=== PATIENT | male | born 1955 | race Two or more races ===

== ENCOUNTER 2023-10-18 12:08 | Inpatient (IN) | payer MEDICARE, OTHER ==
[~2023-10-18] VITALS: Ht 167.6 cm; Wt 83.7 kg
[2023-10-18 13:30] LABS: Basophils # (auto) 0.1 10 ^3/uL (0-0.2); Eosinophils # (auto) 0.4 10 ^3/uL (0-0.8); Eosinophils % (auto) 4.5 % (0.0-7.0); Hematocrit 46.9 % (41.0-53.0); Hemoglobin 15.9 g/dL (13.5-17.5); Lymphocytes % (auto) 25.2 % (10.0-50.0); Mean Corpuscular Hemoglobin 29.4 pg (28.0-32.0); Mean Corpuscular Hgb Conc. 33.8 g/dL (32.0-36.0); Mean Corpuscular Volume 86.9 fL (80.0-100.0); Monocytes # (auto) 0.5 10 ^3/uL (0-1.3); Monocytes % (auto) 6.8 % (0.0-12.0); Neutrophils # (auto) 4.9 10 ^3/uL (1.6-8.6); Neutrophils % (auto) 62.5 % (37.0-80.0); Nucleated Red Blood Cells % 0.1 %; Platelet Count (auto) 144 10^3/uL (140-450); Red Cell Distribution Width 13.6 % (11.8-14.3); White Blood Cell 7.9 10^3/uL (4.4-10.8)
[2023-10-18 13:49] LABS: Alanine Aminotransferase 64 U/L (7-40); Alkaline Phosphatase 136 U/L (46-116); Anion Gap 9 (5-15); Aspartate Aminotransferase 37 U/L (13-40); BUN/Creatinine Ratio 11.4 (10.0-20.0); Blood Urea Nitrogen 21 mg/dL (9-23); Calcium 9.3 mg/dL (8.7-10.4); Carbon Dioxide 20 mmol/L (20-30); Chloride 96 mmol/L (98-107); Magnesium 2.4 mg/dL (1.6-2.6); Potassium 4.8 mmol/L (3.5-5.1); Sodium 125 mmol/L (136-145)
[2023-10-18 13:50] LABS: Bilirubin, Total 0.6 mg/dL (0.2-1.0); Total Protein 7.1 g/dL (5.7-8.2)
[2023-10-18 13:53] LABS: Glucose 683 mg/dL (74-106)
[2023-10-18] MEDS: SODIUM CHLORIDE 0.9% 1,000 ML IV ONE (14:50)
[2023-10-18] MEDS: InsuLIN REG 1unit/0.01ml Soln (100units/ml) IV ONE (14:50)
[2023-10-18] MEDS: SODIUM CHLORIDE 0.9% 1,000 ML IV SCH (19:00)
[2023-10-18] MEDS ORDERED: DEXTROSE (50%) 50ML SYRG IV PRN (19:00)
[2023-10-18] MEDS ORDERED: ONDANSETRON HCL 4 MG/2 ML VIAL IV PRN (19:00)
[2023-10-18] MEDS ORDERED: NITROGLYCERIN 0.4 MG SL TAB SL PRN (19:00)
[2023-10-18] MEDS ORDERED: DOCUSATE SOD 100 MG CAP PO PRN (19:00)
[2023-10-18] MEDS ORDERED: MORPHINE SULFATE INJ 2 MG/ml SYRG IV PRN ×2 (19:00→20:15)
[2023-10-18] MEDS: ACCU-CHEK COMFORT CURVE STRIP VI SCH (20:00)
[2023-10-18 20:30] VITALS: PULSE 73; RESP 17; O2SAT 95
[2023-10-18] MEDS: InsuLIN REG 1unit/0.01ml Soln (100units/ml) SC SCH (20:57)
[2023-10-19 05:01] LABS: Basophils # (auto) 0.1 10 ^3/uL (0-0.2); Eosinophils # (auto) 0.7 10 ^3/uL (0-0.8); Eosinophils % (auto) 10.2 % (0.0-7.0); Hematocrit 43.9 % (41.0-53.0); Hemoglobin 14.9 g/dL (13.5-17.5); Lymphocytes # (auto) 2.1 10 ^3/uL (0.4-5.4); Lymphocytes % (auto) 28.7 % (10.0-50.0); Mean Corpuscular Hemoglobin 28.9 pg (28.0-32.0); Mean Corpuscular Volume 85.1 fL (80.0-100.0); Monocytes # (auto) 0.5 10 ^3/uL (0-1.3); Monocytes % (auto) 7.3 % (0.0-12.0); Neutrophils # (auto) 3.9 10 ^3/uL (1.6-8.6); Neutrophils % (auto) 52.8 % (37.0-80.0); Nucleated Red Blood Cells % 0.1 %; Platelet Count (auto) 129 10^3/uL (140-450); Red Blood Cells 5.15 10^6/uL (4.5-5.90); Red Cell Distribution Width 13.7 % (11.8-14.3); White Blood Cell 7.3 10^3/uL (4.4-10.8)
[2023-10-19 05:19] LABS: Alanine Aminotransferase 114 U/L (7-40); Albumin 3.6 g/dL (3.2-4.8); Alkaline Phosphatase 119 U/L (46-116); Anion Gap 6 (5-15); Aspartate Aminotransferase 154 U/L (13-40); BUN/Creatinine Ratio 12.5 (10.0-20.0); Bilirubin, Total 0.4 mg/dL (0.2-1.0); Blood Urea Nitrogen 17 mg/dL (9-23); Calcium 9.2 mg/dL (8.7-10.4); Carbon Dioxide 23 mmol/L (20-30); Chloride 104 mmol/L (98-107); Potassium 4.1 mmol/L (3.5-5.1); Total Protein 6.4 g/dL (5.7-8.2)
[2023-10-19 05:28] LABS: Glucose 291 mg/dL (74-106); Sodium 133 mmol/L (136-145)
[2023-10-19 07:55] VITALS: PULSE 61; RESP 16; O2SAT 99
[2023-10-19 14:26] VITALS: BP 143/85; PULSE 64; RESP 16; TEMP 98.2; O2SAT 95
[2023-10-19] MEDS ORDERED: DEXTROSE (50%) 50ML SYRG IV PRN (14:30)
[2023-10-19] MEDS ORDERED: CLOP75TA70 PO (14:35)
[2023-10-19] MEDS ORDERED: SUCR1TAB PO (14:35)
[2023-10-19] MEDS ORDERED: EMPA1TAB PO (14:35)
[2023-10-19] MEDS ORDERED: FURO20TA4 PO (14:43)
[2023-10-19] MEDS ORDERED: METF-370 PO (14:43)
[2023-10-19] MEDS ORDERED: ALLO300T2 PO (14:43)
[2023-10-19] MEDS ORDERED: OMEP-337 (14:43)
[2023-10-19] MEDS ORDERED: INSUINJ37 SC (14:43)
[2023-10-19] MEDS ORDERED: INSU100I4 SC (14:43)
[2023-10-19] MEDS ORDERED: AMLO1TAB23 PO (14:43)
[2023-10-19] MEDS ORDERED: ENAL1TAB48 PO (14:43)
[2023-10-19 14:50] VITALS: PULSE 61; RESP 20; O2SAT 96
[2023-10-19] MEDS: SODIUM CHLORIDE 0.9% 1,000 ML IV SCH (15:39)
[2023-10-19 16:33] VITALS: BP 121/80; PULSE 66; RESP 16; TEMP 97.9; O2SAT 97
[2023-10-19] MEDS: ACCU-CHEK COMFORT CURVE STRIP VI SCH (17:15)
[2023-10-19] MEDS: metFORMIN HYDROCHLORIDE 500 MG TAB PO SCH (18:01)
[2023-10-19] MEDS: InsuLIN REG 1unit/0.01ml Soln (100units/ml) SC SCH (18:05)
[2023-10-19 20:00] VITALS: PULSE 65; O2SAT 96
[2023-10-19 21:00] VITALS: BP 138/64; PULSE 66; RESP 16; TEMP 98.4; O2SAT 96
[2023-10-20] VITALS (8 sets, daily range): BP systolic 126–156; BP diastolic 76–89; PULSE 53–64; RESP 16–20; TEMP 97.7–98.2; O2SAT 93–100
[2023-10-20 02:30] LABS: Urine Bacteria None Seen /hpf (None Seen)
[2023-10-20 02:48] LABS: Creatinine, Urine 48.23 mg/dL (30.0-125.0); Urine Blood Negative /uL (Negative); Urine Clarity Clear (Clear); Urine Color Light-Yellow (Yellow); Urine Protein, UAD Negative (Negative); Urine Specific Gravity 1.019 (1.001-1.035); Urine Urobilinogen Normal (Negative); Urine WBC <1 /hpf (0 - 3); Urine pH 5.5 (5.0-9.0)
[2023-10-20 07:49] LABS: Alanine Aminotransferase 119 U/L (7-40); Albumin 3.1 g/dL (3.2-4.8); Alkaline Phosphatase 108 U/L (46-116); Anion Gap 5 (5-15); Aspartate Aminotransferase 126 U/L (13-40); Blood Urea Nitrogen 18 mg/dL (9-23); Calcium 8.3 mg/dL (8.7-10.4); Carbon Dioxide 24 mmol/L (20-30); Chloride 107 mmol/L (98-107); LDL Cholesterol 102 mg/dL (< 100); Magnesium 1.7 mg/dL (1.6-2.6); Potassium 4.5 mmol/L (3.5-5.1); Sodium 136 mmol/L (136-145); Triglycerides 143 mg/dL (< 150)
[2023-10-20 07:50] LABS: Bilirubin, Total 0.5 mg/dL (0.2-1.0); Cholesterol 148 mg/dL (< 200); HDL Cholesterol 30 mg/dL (40-59); Total Protein 5.3 g/dL (5.7-8.2)
[2023-10-20 07:51] LABS: Glucose 150 mg/dL (74-106)
[2023-10-20] MEDS: EMPAGLIFLOZIN 10 MG TAB PO SCH (07:51)
[2023-10-20] MEDS: INSULIN LANTUS (GLARGINE) 1 /0.01ml (100units/ml) SC SCH (21:28)
[2023-10-21 05:00] VITALS: BP 137/79; PULSE 53; RESP 19; TEMP 97.7; O2SAT 98
[2023-10-21 08:00] VITALS: PULSE 48
[2023-10-21 09:00] VITALS: BP 140/86; PULSE 56; RESP 17; TEMP 97.9; O2SAT 100
[2023-10-21 10:43] LABS: Hepatitis B Surface Antigen Negative (Negative)
[2023-10-21] MEDS ORDERED: EMPA1TAB PO (10:54)
[2023-10-21] MEDS ORDERED: METF-370 PO (10:54)
[2023-10-21 11:05] LABS: Hepatitis B Core IgM Negative; Hepatitis C Antibody Negative (Negative)
[2023-10-21 13:31] VITALS: BP 150/80; PULSE 66; RESP 17; TEMP 97.8; O2SAT 96
[2023-10-21 16:31] LABS: Hepatitis A Ab IgM Negative
[2023-10-21 16:58] VITALS: BP 132/90; PULSE 60; RESP 17; TEMP 97.9; O2SAT 95
[2023-10-21 17:09] VITALS: BP 130/86; PULSE 60; RESP 18; TEMP 97.9; O2SAT 99
== END 2023-10-21 18:55 | disposition home or self-care (01) | DRG 637 ==
LOC: ER 12:08 → TELE 19:09 → TELE-CENTR 19:09
PROVIDERS: ADMIT Nurse Practitioner Family; ATTEND Internal Medicine
DX: E11.65 Type 2 diabetes mellitus with hyperglycemia (principal); N17.0 Acute kidney failure with tubular necrosis; N18.9 Chronic kidney disease, unspecified; E11.22 Type 2 diabetes mellitus with diabetic chronic kidney disease; Z91.199 Patient's noncompliance with other medical treatment and regimen due to unspecified reason; Z79.4 Long term (current) use of insulin; Z79.899 Other long term (current) drug therapy
CPT/HCPCS: 36415; 70450; 80053; 80061; 80074; 81001; 82570; 82962; 83036; 83605; 83735; 83930; 83935; 84300; 84443; 84484; 85025; 93306; 93886; G0378; J1815

== ENCOUNTER → 2024-01-04 | Outpatient (CLI) | payer MEDICARE ==
[~2024-01-04] MED LIST: ALLO300T2 PO; AMLO1TAB23 PO; CLOP75TA70 PO; EMPA1TAB PO; ENAL1TAB48 PO; FURO20TA4 PO; INSU100I4 SC; INSUINJ37 SC; METF-370 PO; OMEP-337; SUCR1TAB PO
[2024-01-04 12:28] LABS: Creatinine, Urine 63.15 mg/dL (30.0-125.0)
[2024-01-04 12:29] LABS: Prostate Specific Antigen 0.3 ng/mL (0.0-4.0)
[2024-01-04 12:30] LABS: Micro Albumin < 3.0 mg/L (<30.0)
[2024-01-04 12:31] LABS: Alanine Aminotransferase 47 U/L (7-40); Albumin 4.4 g/dL (3.2-4.8); Alkaline Phosphatase 90 U/L (46-116); Anion Gap 7 (5-15); Aspartate Aminotransferase 28 U/L (13-40); Bilirubin, Total 0.5 mg/dL (0.2-1.0); Blood Urea Nitrogen 19 mg/dL (9-23); Calcium 9.9 mg/dL (8.7-10.4); Carbon Dioxide 28 mmol/L (20-31); Chloride 107 mmol/L (98-107); Glucose 87 mg/dL (74-106); Potassium 4.4 mmol/L (3.5-5.1); Sodium 142 mmol/L (136-145); Total Protein 7.4 g/dL (5.7-8.2)
[2024-01-04 12:33] LABS: % Iron Saturation 24.8 % (20-55)
[2024-01-05 08:06] LABS: Rheumatoid Arthritis Factor <10.0 IU/mL (<14.0); Thyroid Peroxidase (TPO) Ab 12 IU/mL (0-34)
[2024-01-05 10:53] LABS: Complement C3 105 mg/dL (82-167)
[2024-01-05 12:07] LABS: Anti-Nuclear Antibody Direct Negative (Negative); Anti-dsDNA Antibody 1 IU/mL (0-9); Antiscleroderma-70 Antibody <0.2 AI (0.0-0.9); RNP Antibody <0.2 AI (0.0-0.9); Sjogren's Anti-SS-A Antibody <0.2 AI (0.0-0.9); Sjogren's Anti-SS-B Antibody <0.2 AI (0.0-0.9); Smith Antibody <0.2 AI (0.0-0.9)
== END | disposition home or self-care (01) ==
LOC: LAB 11:09
PROVIDERS: ATTEND Internal Medicine
DX: I10 Essential (primary) hypertension (principal); E11.9 Type 2 diabetes mellitus without complications; E78.5 Hyperlipidemia, unspecified; Z79.899 Other long term (current) drug therapy
CPT/HCPCS: 36415; 80053; 82043; 82570; 82728; 83036; 83540; 83550; 84153; 86160; 86225; 86235; 86376; 86431

== ENCOUNTER → 2024-01-26 | Outpatient (CLI) | payer MEDICARE | END | disposition home or self-care (01) | LOC: LAB 16:18 | PROVIDERS: ATTEND Internal Medicine | DX: I10 Essential (primary) hypertension (principal); E11.9 Type 2 diabetes mellitus without complications; E78.5 Hyperlipidemia, unspecified ==

== ENCOUNTER → 2024-03-20 | Outpatient (CLI) | payer MEDICARE ==
[2024-03-20 12:41] LABS: Alanine Aminotransferase 32 U/L (7-40); Albumin 4.3 g/dL (3.2-4.8); Alkaline Phosphatase 88 U/L (46-116); Anion Gap 9 (5-15); Aspartate Aminotransferase 20 U/L (13-40); Blood Urea Nitrogen 16 mg/dL (9-23); Calcium 9.4 mg/dL (8.7-10.4); Carbon Dioxide 25 mmol/L (20-31); Chloride 106 mmol/L (98-107); Glucose 94 mg/dL (74-106); Potassium 4.5 mmol/L (3.5-5.1); Sodium 140 mmol/L (136-145)
[2024-03-20 12:42] LABS: Bilirubin, Total 0.5 mg/dL (0.2-1.0); Total Protein 6.9 g/dL (5.7-8.2)
[2024-03-20 12:43] LABS: Creatinine, Urine 43.56 mg/dL (30.0-125.0)
[2024-03-20 12:48] LABS: Micro Albumin < 3.0 mg/L (<30.0)
== END | disposition home or self-care (01) ==
LOC: LAB 11:01
PROVIDERS: ATTEND Internal Medicine
DX: E11.9 Type 2 diabetes mellitus without complications (principal); E78.5 Hyperlipidemia, unspecified
CPT/HCPCS: 36415; 80053; 82043; 82570; 83036

== ENCOUNTER → 2024-03-27 | Outpatient (CLI) | payer MEDICARE | END | disposition home or self-care (01) | LOC: LAB 05:53 | PROVIDERS: ATTEND Internal Medicine | DX: E11.9 Type 2 diabetes mellitus without complications (principal); E78.5 Hyperlipidemia, unspecified | CPT/HCPCS: 82270 ==

== ENCOUNTER → 2024-04-04 | Outpatient (CLI) | payer MEDICARE ==
[2024-04-04 15:45] LABS: Triglycerides 132 mg/dL (< 150)
[2024-04-04 15:46] LABS: Cholesterol 200 mg/dL (< 200); HDL Cholesterol 56 mg/dL (40-59)
[2024-04-04 15:47] LABS: LDL Cholesterol 136 mg/dL (< 100)
== END | disposition home or self-care (01) ==
LOC: LAB 09:36
PROVIDERS: ATTEND Internal Medicine
DX: E11.9 Type 2 diabetes mellitus without complications (principal); E78.5 Hyperlipidemia, unspecified
CPT/HCPCS: 36415; 80061; 83036

== ENCOUNTER → 2024-07-04 | Outpatient (CLI) | payer MEDICARE ==
[2024-07-04 13:44] LABS: Albumin 4.4 g/dL (3.2-4.8); Bilirubin, Direct 0.1 mg/dL (<0.3); Bilirubin, Total 0.4 mg/dL (0.2-1.0); Total Protein 7.1 g/dL (5.7-8.2)
== END | disposition home or self-care (01) ==
LOC: LAB 13:00
PROVIDERS: ATTEND Internal Medicine
DX: E78.5 Hyperlipidemia, unspecified (principal)
CPT/HCPCS: 36415; 80076; 82550

== ENCOUNTER 2024-09-26 07:48 | Outpatient (CLI) | payer MEDICARE ==
[2024-09-26 08:35] LABS: Alanine Aminotransferase 20 U/L (7-40); Albumin 4.4 g/dL (3.2-4.8); Alkaline Phosphatase 84 U/L (46-116); Anion Gap 9 (5-15); BUN/Creatinine Ratio 10.5 (10.0-20.0); Blood Urea Nitrogen 13 mg/dL (9-23); Calcium 9.1 mg/dL (8.7-10.4); Carbon Dioxide 23 mmol/L (20-31); Chloride 107 mmol/L (98-107); Cholesterol 138 mg/dL (< 200); HDL Cholesterol 46 mg/dL (40-59); Potassium 4.3 mmol/L (3.5-5.1); Sodium 139 mmol/L (136-145); Total Protein 7.1 g/dL (5.7-8.2); Triglycerides 100 mg/dL (< 150)
[2024-09-26 08:36] LABS: Bilirubin, Total 0.5 mg/dL (0.2-1.0)
[2024-09-26 08:37] LABS: Glucose 159 mg/dL (74-106)
== END 2024-09-26 17:00 | disposition home or self-care (01) ==
LOC: LAB 07:48
PROVIDERS: ATTEND Internal Medicine
DX: E11.9 Type 2 diabetes mellitus without complications (principal); E78.5 Hyperlipidemia, unspecified
CPT/HCPCS: 36415; 80053; 80061; 83036

== ENCOUNTER 2024-12-27 07:21 | Outpatient (CLI) | payer MEDICARE ==
[2024-12-27 08:03] LABS: Urine Protein, UAD Negative (Negative)
[2024-12-27 08:28] LABS: Triglycerides 90 mg/dL (< 150)
[2024-12-27 08:30] LABS: Cholesterol 177 mg/dL (< 200); HDL Cholesterol 54 mg/dL (40-59)
== END 2024-12-27 17:00 | disposition home or self-care (01) ==
LOC: LAB 07:21
PROVIDERS: ATTEND Internal Medicine
DX: E11.9 Type 2 diabetes mellitus without complications (principal); E78.5 Hyperlipidemia, unspecified
CPT/HCPCS: 36415; 80061; 81001; 82043; 82570; 83036

== ENCOUNTER 2025-01-02 12:55 | Outpatient (CLI) | payer MEDICARE | END 2025-01-02 17:00 | disposition home or self-care (01) | LOC: LAB 12:55 | PROVIDERS: ATTEND Internal Medicine | DX: R60.0 Localized edema (principal); R03.1 Nonspecific low blood-pressure reading; I27.20 Pulmonary hypertension, unspecified; Z79.899 Other long term (current) drug therapy | CPT/HCPCS: 83880 ==

== ENCOUNTER 2025-01-10 09:03 | Outpatient (CLI) | payer MEDICARE ==
--- NOTE | 2025-01-10 18:32 | DVHSR ---
APPROVED REPORT EXAM: Two-dimensional and M-mode echocardiogram with Doppler and color Doppler. INDICATION Peripheral Edema DIMENSIONS LVDd (3.8-5.7cm) LA (2D) (1.9-4.0cm) Aortic Root 3.4 (2.0-3.7cm) LVDs (2.5-4.0cm) LA (MM) (1.9-4.0cm) Aortic Cusp Exc 1.6 (1.5-2.0cm) EF (%) 60.0 (55-70%) Rt. Atrium (1.9-4.0cm) Asc. Aorta cm Mitral Valve Mitral Mitral Stenosis E wave 0.71m/s MV Mean GR. mmHg A wave 0.83m/s MV Peak GR. mmHg E/A ratio 0.9 2D MVA cm2 DECEL Time 214ms PRESS 1/2 Time ms Aortic Valve Aortic Valve Aortic Stenosis V1 1.04m/s AO Mean GR. 5mmHg V2 1.57m/s AO Peak GR. 10mmHg LVOT Diameter 2.0 (1.8-2.4cm) Doppler [place] 2.08cm2 Pulmonic Valve V2 0.93m/s Tricuspid Valve TR Velocity 2.38m/s RVSP 26mmHg Other Information Technically limited study due to body habitus. Conclusion Technically difficult study. Difficult acoustic windows. Normal chamber sizes. Valves are normal. EF of 55-60% with normal right ventricular function. Mild tricuspid regurgitation. No pericardial effusion masses or vegetations.
== END 2025-01-10 17:00 | disposition home or self-care (01) ==
LOC: XYW 09:03
PROVIDERS: ATTEND Internal Medicine
DX: I07.1 Rheumatic tricuspid insufficiency (principal); R60.0 Localized edema
CPT/HCPCS: 93306

== ENCOUNTER 2025-01-10 10:43 | Outpatient (CLI) | payer MEDICARE ==
[2025-01-10 11:43] LABS: Chloride 105 mmol/L (98-107); Potassium 4.6 mmol/L (3.5-5.1); Sodium 141 mmol/L (136-145)
[2025-01-10 11:45] LABS: Anion Gap 10 (5-15); Calcium 9.0 mg/dL (8.7-10.4); Carbon Dioxide 26 mmol/L (20-31)
[2025-01-10 11:50] LABS: BUN/Creatinine Ratio 15.0 (10.0-20.0); Blood Urea Nitrogen 19 mg/dL (9-23)
[2025-01-10 11:52] LABS: Glucose 257 mg/dL (74-106)
[2025-01-10 13:07] LABS: Triglycerides 94 mg/dL (< 150)
[2025-01-10 13:09] LABS: Cholesterol 164 mg/dL (< 200); HDL Cholesterol 49 mg/dL (40-59)
== END 2025-01-10 17:00 | disposition home or self-care (01) ==
LOC: LAB 10:43
PROVIDERS: ATTEND Internal Medicine
DX: E11.9 Type 2 diabetes mellitus without complications (principal)
CPT/HCPCS: 36415; 80048; 80061